=== PATIENT | male | born 2005 | race Caucasian/White ===

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

== ENCOUNTER 2024-08-19 09:48 | Emergency (ER) | payer MEDICAID ==
[~2024-08-19] VITALS: Ht 180.3 cm; Wt 104.5 kg
[~2024-08-19 09:48] MED LIST changes: +METH4TAB3 PO
--- NOTE | 2024-08-19 10:13 | ELECTROCARDIOGRAPH REPORT ---
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 Lupillo Patrick Measurements Intervals [place] Rate: 77 P: 37 HI: 149 QRS: 37 QRSD: 89 T: 10 QT: 335 QTc: 380 Interpretive Statements Sinus rhythm Borderline T wave abnormalities Electronically Signed On 08-19-2024 13:16:[address] Lupillo Patrick Please click the below link to view image of tracing.
--- NOTE | 2024-08-19 10:23 | Physician Documentation ---
History of Present Illness ~ Chief Complaint: Syncope Stated Complaint: SEIZURE Time Seen by MD: 10:23 Primary Medical Doctor: NONE HPI This is a 19-year-old male who presents to the emergency department per EMS accompanied by his aunt due to concerns regarding a syncopal episode that occurred at [employer]arsanism. His aunt reports he was standing up when he fell forward onto the padded chair in front of him and was unresponsive for about 2 minutes. She believed that she observed seizure-like activity during this event. She describes this as his eyes open with staring and some minor fluttering of his eyelids. When questioned about symptomology prior to loss of consciousness, the patient reports feeling very dizzy and grabbing onto the chair in front of him. He further notes experiencing a sour stomach in and a headache. After regaining consciousness, he was briefly confused and pale. No loss of bowel or bladder control occured and he was quickly reoriented. 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 He had a 12 hour day the day prior to that. He was drinking water throughout the day, but notes that perhaps not as much as he should have. No dark urine. He also notes that he had not eaten anything the entire day until midnight yesterday and then did not eat breakfast today. Despite being exhausted if his long work day, he only slept for about 4 hours. He denies any current muscle pain or weakness. Denies medical problems. With questioning and noting of low grade temp, he admits to feeling somewhat unwell with a sore throat. Medication Reconciliation Allergies: Coded Allergies: No Known Allergies (Unverified , 02/21/22) Scheduled Hydrocortisone (hydrocortisone 1% cream), 1 APPLIC TOP Q12H Methylprednisolone (Medrol), 1 DOSPAK PO UD Past Medical History Past Medical History: No Pertinent History Past Surgical History: no surgical history Alcohol Use: None Drug Use: none Lives In: Home Review of Systems ROS As stated above in the HPI, otherwise all systems are reviewed and negative. Physical Exam Vital Signs: Temperature: 100.7, Source: Oral, Heart Rate: 71, Respiratory Rate: 18, BP: 135/76, Pulse Oximetry: 100, Weight: 104.550 Physical Exam General: Alert, no apparent distress. HEENT: PERRL, EOMI, no injection, moist mucous membranes. mild posterior pha ryngeal erythema with no exudative or enlarged tonsils. Uvula midline. Neck: Full range of motion. Respiratory: Lungs clear, no respiratory distress. Chest: No accessory muscle use. Cardiovascular: Regular rate and rhythm, no murmurs. Gastrointestinal: Soft, nontender, nondistended. Bowels sounds present. Extremities: Normal range of motion, no deformity. Neurologic: Oriented x4. Cranial nerves II-XII intact and without abnormalities. No pronator drift. Clear speech. Psychiatric: Normal mood and affect. Skin: Normal color, warm and dry. No edema, no ecchymosis. Progress Progress Note 1120: On reeval, reports feeling much better with nearly full liter of NS infused. Plan to d/c with instructions to rest and hydrate. Aunt who is with him agrees and notes that she will encourage this. Eating sandwich at this time. Results/Orders Results/Orders Orders - CROW GARCIA CLERK CHECKER Electrocardiogram (08/19/24 10:23) Monitor (08/19/24 10:23) Drug Screen, Urine (08/19/24 10:23) Urinalysis, Cult If Indicated (08/19/24 10:23) * Iv Access / Saline Lock * (08/19/24 10:35) * Miscellaneous Nursing Orders (08/19/24 10:35) Completed Orders - CROW GARCIA CLERK CHECKER Electrocardiogram (08/19/24 ) Cbc/Diff (08/19/24 10:23) BMP (08/19/24 10:23) Normal Saline 1000ml (Sodium Chloride 10 (08/19/24 10:35) Medications Received in ER Medications (Trade) Dose Ordered Sig/Kaitlynn Route PRN Reason Start Time Stop Time Status Last Admin Dose Admin Sodium Chloride 1,000 ml @ 1,000 mls/hr ONCE ONCE IV 08/19/24 10:35 08/19/24 11:34 DC 08/19/24 10:56 1,000 MLS/HR Vital Signs 08/19/24 08/19/24 08/19/24 09:54 10:57 10:57 Temp 100.7 100.7 Pulse 71 80 Resp 18 19 18 B/P (MAP) 135/76 123/65 (84) Pulse Ox 100 100 O2 Flow Rate 0 Laboratory Tests Test 08/19/24 10:41 White Blood Count 7.5 Red Blood Count 4.86 Hemoglobin 13.9 L Hematocrit 41.7 L Mean Corpuscular Volume 85.8 Mean Corpuscular Hemoglobin 28.6 Mean Corpuscular Hemoglobin Concent 33.4 Red Cell Distribution Width 14.2 Platelet Count 178 Mean Platelet Volume 7.8 Neutrophils (%) (Auto) 82.0 H Lymphocytes (%) (Auto) 9.9 L Monocytes (%) (Auto) 7.8 Eosinophils (%) (Auto) 0.2 Basophils (%) (Auto) 0.1 Neutrophils # (Auto) 6.1 Lymphocytes # (Auto) 0.7 L Monocytes # (Auto) 0.6 Eosinophils # (Auto) 0.0 Basophils # (Auto) 0.0 CBC Comment Sodium Level 142 Potassium Level 4.0 Chloride Level 107 Carbon Dioxide Level 28.5 Anion Gap 7 L Blood Urea Nitrogen 9 Creatinine 1.01 Estimated GFR/1.73 m2 > 90 BUN/Creatinine Ratio 8.9 L Glucose Level 103 Calcium Level 8.9 Albumin 3.9 Chemistry Comments EKG/XRAY/CT/US/VASC/MRI EKG : Additional Comment 1009: EKG interpreted to show RSR rate of 77. No ectopy, no ST segment elevation. QTC 380 ms. Medical Decision Making Differential Dx:Considerations: Include: anemia, CVA, cerebral occlusion, cer ebral thrombosis, dehydration, dysrhythmia, electrolyte disorder, encephalopathy, hypoglycemia, hypovolemia, labyrinthitis, Meniere's disease, myocardial infarction, pulmonary embolus, TIA, vasovagal, VBI, vertigo central, vertigo peripheral, vestibular neuronitis Additional Information Low grade temp with sore throat seems to indicate developing viral syndrome. Suspect syncopal episode due to exhaustion, dehydration, and inadequate intake of foods and fluids. Electrolytes WNL. EKG WNL. Departure Time of Disposition: 11:24 Disposition: 01 HOME / SELF CARE / HOMELESS Impression: Primary Impression: Syncope Additional Impression: Viral illness Condition: Stable Discharge Instructions: Dehydration, Adult, Syncope, Adult, Viral Illness, Adult Additional Instructions: You are likely coming down with a viral illness due to your report of sore throat and noted low-grade fever. Rest. Fluids such as gatorade. Off work the next couple days. Followup with primary care. Return if worse. Referrals: NO PRIMARY CARE PROVIDER (PCP) Education Educated: Patient, Family Educated regarding: diagnosis, treatment, prognosis, need for follow up Signature Scribe Signature: no scribe Attestation: The note accurately reflects work and decisions made by me.Crow Last NP 08/19/24 10:41 CROW GARCIA NP August 19, 2024 10:23
[2024-08-19] MEDS: normal saline 1000ml 1,000 ML IV ONE (10:56)
[2024-08-19 11:08] LABS: BASOPHILS % (AUTO) 0.1 % (0-1); EOSINOPHILS % (AUTO) 0.2 % (0-6); HEMATOCRIT 41.7 % (42.0-52.0); HEMOGLOBIN 13.9 g/dl (14.0-17.9); LYMPHOCYTES # (AUTO) 0.7 X10'3 (1.1-4.8); LYMPHOCYTES % (AUTO) 9.9 % (21-51); MEAN CORPUSCULAR HEMOGLOBIN 28.6 PG (27.0-31.0); MEAN CORPUSCULAR HGB CONC 33.4 g/dL (33.0-36.5); MEAN CORPUSCULAR VOLUME 85.8 FL (78-98); MEAN PLATELET VOLUME 7.8 FL (7.4-10.4); MONOCYTES # (AUTO) 0.6 X10'3 (0-0.9); MONOCYTES % (AUTO) 7.8 % (2-12); NEUTROPHILS # (AUTO) 6.1 X10'3 (1.8-7.7); PLATELET COUNT 178 X10'3 (140-440); RED BLOOD COUNT 4.86 X10'6 (4.70-6.10); RED CELL DISTRIBUTION WIDTH 14.2 % (11.5-14.5); WHITE BLOOD COUNT 7.5 X10'3 (4.5-11.0)
[2024-08-19 11:15] LABS: ALBUMIN 3.9 G/DL (3.4-5.0); ANION GAP 7 (8-16); BLOOD UREA NITROGEN 9 MG/DL (7-18); BUN/CREATININE RATIO 8.9 (10.0-20.0); CALCIUM 8.9 MG/DL (8.5-10.1); CHLORIDE 107 MMOL/L (99-107); CREATININE 1.01 MG/DL (0.60-1.10); GLUCOSE 103 MG/DL (70-104); SODIUM 142 MMOL/L (135-145); TOTAL CARBON DIOXIDE 28.5 MMOL/L (24-32); eCRCL 123 ML/MIN; eGFR > 90 ML/MIN
[2024-08-19 11:51] VITALS: BP 132/63; PULSE 89; RESP 15; TEMP 98; O2SAT 98
== END 2024-08-19 11:53 | disposition home or self-care (01) ==
LOC: ER 09:48
DX: B34.9 Viral infection, unspecified (principal); R55 Syncope and collapse
CPT/HCPCS: 36415; 80048; 85025; 93005; 96360; 99284; J7030